=== PATIENT | male | born 1985 | race Caucasian/White ===

== ENCOUNTER 2018-02-08 11:19 | Emergency (ER) | payer OTHER ==
[2018-02-08 11:43] VITALS: BP 148/88; PULSE 85; TEMP 98.5; BMI 31.2
[2018-02-08] MEDS ORDERED: IBUPROFEN 600 MG TABLET (FP) PO ONE ×2 (11:45→11:49)
--- NOTE | 2018-02-08 12:16 | PDOC ---
History of Present Illness - General Chief Complaint: Injury Stated Complaint: LEFT FOOT PAIN Time Seen by Provider: 02/08/18 11:45 History Source: Patient Exam Limitations: No Limitations - History of Present Illness Initial Comments: 02/08/18 12:13 32-year-old male no past medical history here today complaining of left foot pain. Patient states he jumped from a height 1 week ago landed on both feet on the ball of his foot. Has been having persistent pain at the base of his left great toe on the plantar surface. No ecchymosis didn't feel he noted some mild swelling no fevers chills no ankle or knee pain did not take anything for pain prior to arrival pain is mild Past History - Past Medical History Allergies/Adverse Reactions: Allergies Allergy/AdvReac Type Severity Reaction Status Date / Time amoxicillin [From Augmentin] Allergy Verified 02/08/18 11:24 clavulanic acid Allergy Verified 02/08/18 11:24 [From Augmentin] Penicillins Allergy Verified 02/08/18 11:24 Home Medications: Ambulatory Orders NK [No Known Home Medication] 02/08/18 COPD: No - Suicide/Smoking/Psychosocial Hx Smoking History: Never smoked Have you smoked in the past 12 months: No Information on smoking cessation initiated: No Hx Alcohol Use: (occasional) Review of Systems - Review of Systems Constitutional: No: Diaphoresis, Fever Respiratory: No: Cough, Orthopnea Cardiac (ROS): No: Chest Pain ABD/GI: No: Abdominal Distended Musculoskeletal: Yes: Joint Pain All Other Systems: Reviewed and Negative *Physical Exam - Vital Signs Last Vital Signs Temp Pulse Resp BP Pulse Ox 98.5 F 85 18 148/88 99 02/08/18 11:19 02/08/18 11:19 02/08/18 11:19 02/08/18 11:19 02/08/18 11:19 ED Treatment Course - RADIOLOGY Radiology Studies Ordered: Category Date Time Status FOOT-LEFT [RAD] Stat Radiology 02/08/18 11:45 Taken - Medications Given in the ED: ED Medications Discontinued Medications Generic Name Dose Route Start Last Admin Trade Name Freq PRN Reason Stop Dose Admin Ibuprofen 600 mg 02/08/18 11:45 02/08/18 11:50 Motrin - PO 02/08/18 11:46 600 mg ONCE ONE Administration Medical Decision Making - Medical Decision Making 02/08/18 12:14 Differential diagnosis includes fracture versus contusion. Swelling on exam is minimal no associated erythema no effusion. Plan x-ray of the foot pain control with ibuprofen podiatry follow-up as needed X-rays are negative for fracture plan to DC with a good support shoe podiatry follow-up and NSAIDs *DC/Admit/Observation/Transfer Diagnosis at time of Disposition: Contusion - Discharge Dispostion Disposition: HOME Condition at time of disposition: Improved Decision to Admit order: No - Referrals Referrals: Jah Vilchis MD [Staff Physician] - - Patient Instructions Printed Discharge Instructions: Contusion Additional Instructions: You can wear a soft soled shoe with good support. Take ibuprofen 600 mg every 8 hours as needed for pain take with food follow-up with podiatry for persistent pain beyond 1 week return for any problems or concerns. Your x-rays of your foot today are negative for any broken bones - Post Discharge Activity
== END 2018-02-08 12:34 | disposition home or self-care (01) ==
LOC: FER 11:19
DX: S90.32XA Contusion of left foot, initial encounter (principal); W18.39XA Other fall on same level, initial encounter; Y93.89 Activity, other specified; Y92.9 Unspecified place or not applicable
CPT/HCPCS: 73630-TC-LT; 99282-25

== ENCOUNTER 2020-12-26 18:54 | Emergency (ER) | payer OTHER ==
[2020-12-26 19:01] VITALS: BP 155/108; PULSE 103; TEMP 98.7; BMI 34.9
[2020-12-26 19:54] LABS: BASO % 0.5 % (0-2.0); EOS % 4.1 % (0-4.5); HEMATOCRIT 42.7 % (35.4-49); HEMOGLOBIN 14.7 GM/dl (11.7-16.9); LYMPH % 26.2 % (8-40); MCH 27.4 pg (25.7-33.7); MCHC 34.4 g/dl (32.0-35.9); MEAN CELL VOLUME 79.7 fl (80-96); MEAN PLT VOLUME 8.8 fl (7.5-11.1); MONO % 8.6 % (3.8-10.2); NEUT % 60.6 % (42.8-82.8); PLATELET COUNT 207 10^3/uL (134-434); RBC 5.36 M/mm3 (4.00-5.60); RDW 12.6 % (11.9-15.9); WHITE BLOOD COUNT 7.1 K/mm3 (4.0-10.8)
[2020-12-26 20:05] LABS: ALBUMIN 4.7 g/dl (3.4-5.0); BILIRUBIN,TOTAL 0.6 mg/dl (0.2-1); CALCIUM 9.2 mg/dl (8.5-10); CREATININE 0.7 mg/dl (0.55-1.3); TOT PROT 7.8 g/dl (6.4-8.2)
[2020-12-26] MEDS ORDERED: POTASSIUM CHLORIDE TABS 20 MEQ TABLET.ER (FP) PO ONE ×2 (20:31→20:32)
== END 2020-12-26 22:54 | disposition home or self-care (01) ==
LOC: FER 18:54
DX: R00.2 Palpitations (principal); R42 Dizziness and giddiness
CPT/HCPCS: 36415; 80053; 82550; 82553; 84484; 85025; 93005; 99284-25

== ENCOUNTER 2024-07-04 10:35 | Emergency (ER) | payer OTHER ==
[2024-07-04 10:43] VITALS: TEMP 98.6; BMI 33.7
[2024-07-04] MEDS ORDERED: ASPIRIN 81 MG CHEWABLE TABLETS ONE (11:21)
[2024-07-04] MEDS: ASPIRIN 81 MG CHEWABLE TABLETS PO ONE (11:30)
[2024-07-04 11:40] LABS: HEMATOCRIT 44.3 % (35.4-49); MCH 27.1 pg (25.7-33.7); MEAN CELL VOLUME 79.6 fl (80-96); MEAN PLT VOLUME 9.1 fl (7.5-11.1); PLATELET COUNT 188.6 10^3/uL (134-434); RBC 5.56 10^6/uL (4.00-5.60); RDW 14.2 % (11.9-15.9); WHITE BLOOD COUNT 5.6 10^3/uL (4.0-10.8)
[2024-07-04 11:51] LABS: INR 0.93 (0.83-1.09); PROTHROMBIN TIME (PATIENT) 10.6 SEC (9.7-13.0)
[2024-07-04 11:53] LABS: ACTIVATED PTT 30.7 SECONDS (25.2-36.5)
[2024-07-04 12:17] LABS: ALBUMIN 4.9 g/dl (3.4-5.0); BILIRUBIN,TOTAL 0.6 mg/dl (0.2-1); CALCIUM 9.8 mg/dl (8.5-10.1); CREATININE 0.7 mg/dl (0.6-1.3); POTASSIUM 3.8 mmol/L (3.5-5.1); TOT PROT 7.7 g/dl (6.4-8.2)
[2024-07-04] MEDS ORDERED: ACETAMINOPHEN 500 MG TABLET (FP) ONE (13:48)
[2024-07-04 13:50] VITALS: RESP 16
[2024-07-04] MEDS: ACETAMINOPHEN 500 MG TABLET (FP) PO ONE (13:56)
[2024-07-04 15:02] VITALS: BP 129/80; PULSE 85
== END 2024-07-04 15:08 | disposition home or self-care (01) ==
LOC: FER 10:35
DX: R07.9 Chest pain, unspecified (principal); R42 Dizziness and giddiness; R00.2 Palpitations; F41.0 Panic disorder [episodic paroxysmal anxiety]
CPT/HCPCS: 36415; 71046-TC-FY; 80053; 82550; 82553; 83735; 84484; 85025; 85610; 85730; 93005; 99285-25